=== PATIENT | female | born 1975 | race American Indian/Alaskan Native ===

== ENCOUNTER 2019-05-05 11:20 | Inpatient (IN) | payer MEDICARE ==
[2019-05-04 09:32] LABS: Basophils % (Auto) 0.2 % (0.0-1.8); Eosinophils # (Auto) 0.3 K/mm3 (0.0-0.4); Eosinophils % (Auto) 5.8 % (0.0-4.3); Hematocrit 40.1 % (30.3-42.9); Hemoglobin 13.9 gm/dl (10.1-14.3); Lymphocytes % (Auto) 38.5 % (13.4-35.0); Mean Corpuscular HGB Conc 35 % (30-34); Mean Corpuscular Volume 91 fl (79-97); Monocytes # (Auto) 0.3 K/mm3 (0.0-0.8); Monocytes % (Auto) 6.3 % (0.0-7.3); Platelet Count 244 K/mm3 (140-440); Red Blood Count 4.44 M/mm3 (3.65-5.03); Red Cell Distribution Width 13.5 % (13.2-15.2)
--- NOTE | 2019-05-04 13:04 | Anesthesia Consultation ---
Anesthesia Consult and Med Hx Date of service: 05/04/19 - Airway Anesthetic Teeth Evaluation: Good ROM Head & Neck: Adequate Mental/Hyoid Distance: Adequate Mallampati Class: Class II Intubation Access Assessment: Good - Pulmonary Exam CTA: Yes - Cardiac Exam Cardiac Exam: RRR - Pre-Operative Health Status ASA Pre-Surgery Classification: ASA2 Proposed Anesthetic Plan: General Nerve Block: TAP Block - Pulmonary Hx Smoking: Yes - Central Nervous System Hx Psychiatric Problems: Yes - Other Systems Hx Cancer: No
[~2019-05-05 11:20] MED LIST: LACTATED RINGERS 1,000 ML IV SCH; NEURONTIN PO NR; VERSED IV NR
[2019-05-05] MEDS ORDERED: DILAUDID IV PRN (12:03)
[2019-05-05] MEDS ORDERED: SUBLIMAZE IV ONE (12:03)
[2019-05-05] MEDS ORDERED: TYLENOL PO ONE (12:04)
--- NOTE | 2019-05-05 12:05 | Anesthesia Day of Surgery ---
Anesthesia Day of Surgery - Day of Surgery Patient Examined: Yes Patient H&P Reviewed: Yes Patient is NPO: Yes
--- NOTE | 2019-05-05 12:45 | History and Physical Report ---
History of Present Illness Date of examination: 05/05/19 Date of admission: 05/05/2019 Chief complaint: dysfunctional bleeding and fibroids History of present illness: 43y/o with dysfunctional uterine bleeding and fibroids. The patient reports worsening of her symptoms. She has failed medical management. She has elected for definitive surgical management. Past History Past Medical History: hypertension Past Surgical History: other (tubal ligation; Novasure) SCHEDULING ANALYST History: fibroids Social history: single, smoking - Obstetrical History : 2 Para: 2 Hx # Term Pregnancies: 2 Number of Pregnancies: 0 Spontaneous Abortions: 0 Induced : 0 Number of Living Children: 2 Medications and Allergies Allergies Allergy/AdvReac Type Severity Reaction Status Date / Time No Known Allergies Allergy Verified 04/29/19 12:53 Home Medications Medication Instructions Recorded Confirmed Last Taken Type Oxybutynin [Ditropan] 15 mg PO HS 05/04/19 05/04/19 Unknown History Quetiapine Fumarate [SEROquel XR] 150 mg PO HS 05/04/19 05/04/19 Unknown History tiZANidine [Zanaflex 4mg TAB] 8 mg PO HS 05/04/19 05/04/19 Unknown History traMADol [Ultram 50 MG tab] 50 mg PO Q8H PRN 05/04/19 05/04/19 Unknown History Active Meds: Active Medications Celecoxib (Celebrex) 200 mg PO PREOP NR Stop: 05/06/19 12:59 Fentanyl (Sublimaze) 50 mcg IV Q5MIN PRN PRN Reason: Pain , Severe (7-10) Stop: 05/06/19 12:02 Gabapentin (Neurontin) 300 mg PO PREOP NR Stop: 05/05/19 23:59 Hydromorphone HCl (Dilaudid) 0.5 mg IV Q10MIN PRN PRN Reason: Pain , Severe (7-10) Stop: 05/06/19 12:02 Lactated Ringer's (Lactated Ringers) 1,000 mls @ 100 mls/hr IV DIRECT AMRYJO Midazolam HCl (Versed) 2 mg IV PREOP NR Stop: 05/05/19 23:59 Review of Systems All systems: negative Genitourinary: vaginal bleeding, pelvic pain - Vital Signs Vital signs: Vital Signs Temp Pulse Resp BP Pulse Ox 99.5 F 20 L 20 119/73 97 05/04/19 09:15 05/04/19 09:15 05/04/19 09:15 05/04/19 09:15 05/04/19 09:15 Temp Pulse Resp BP Pulse Ox 99.5 F 20 L 20 119/73 97 05/04/19 09:15 05/04/19 09:15 05/04/19 09:15 05/04/19 09:15 05/04/19 09:15 - Physical Exam Breasts: Positive: deferred Cardiovascular: Regular rate Lungs: Positive: Clear to auscultation Abdomen: Positive: normal appearance Results Result Diagrams: 05/04/19 09:25 All other labs normal. Assessment and Plan - Patient Problems (1) Leiomyoma Current Visit: Yes Status: Acute Plan to address problem: will proceed with a robotic hysterectomy (2) Dysmenorrhea Current Visit: Yes Status: Acute
[2019-05-05] MEDS ORDERED: MARCAINE-EPI 0.5%-1:200,000 INFILTRATI ONE (12:54)
[2019-05-05] MEDS ORDERED: XYLOCAINE 1% 20 mL ONE (12:54)
[2019-05-05] MEDS ORDERED: ANCEF/STERILE WATER 2 GM/20 ML 2 GM/20 ML SYRINGE IV NR (13:00)
[2019-05-05] MEDS ORDERED: SUBLIMAZE ONE ×3 (13:25→16:35)
[2019-05-05] MEDS ORDERED: ZEMURON IV ONE (13:25)
[2019-05-05] MEDS ORDERED: XYLOCAINE MPF 2% ONE (13:25)
[2019-05-05] MEDS ORDERED: ZOFRAN ONE (13:25)
[2019-05-05] MEDS ORDERED: DECADRON ONE (13:25)
[2019-05-05] MEDS ORDERED: DIPRIVAN 10 MG/ML IV ONE (13:25)
[2019-05-05] MEDS ORDERED: NEOSPORIN GU IR ONE ×2 (13:29→14:46)
[2019-05-05] MEDS ORDERED: NACL 0.9% IR ONE ×2 (14:46)
[2019-05-05] MEDS ORDERED: PERCOCET 5/325 PO PRN (15:20)
[2019-05-05] MEDS ORDERED: MORPHINE IV PRN (15:20)
[2019-05-05] MEDS ORDERED: IBUPROFEN PO PRN (15:20)
[2019-05-05] MEDS ORDERED: ZOFRAN IV PRN (15:20)
[2019-05-05] MEDS ORDERED: AMBIEN PO PRN (15:20)
--- NOTE | 2019-05-05 15:20 | Operative Report ---
Operative Report Operative Report: Date of surgery: 05/05/2019 Preoperative diagnoses: Symptomatic uterine fibroids; dysmenorrhea; menorrhagia Postoperative diagnoses: Same as above Procedure: Robotic hysterectomy; Bilateral salpingectomy Surgeon: Zuleika Boateng M.D. Quotation Checker: Brionna Carl Anesthesia: Gen. endotracheal anesthesia Estimated blood loss: 50 mL Pathology: Cervix, uterus, bilateral tubes Indication: 43-year-old with symptomatic uterine fibroids and dysmenorrhea. The patient also reported abnormal vaginal bleeding. Procedure: The patient was taken to the operating room and given general endotracheal anesthesia without complication. She is prepped and draped in a normal sterile fashion. A bivalve speculum was placed in the patient's vagina and a single- tooth tenaculum placed on the anterior lip of the cervix. The uterus was sounded with the uterine sound. A [employer] uterine manipulator was placed in the bivalve speculum was then removed. Attention was then turned to the patient's abdomen where a millimeter supra umbilical skin incision was then made. A Veress needle was placed and peritoneal entry was verified water-filled syringe. Insufflation of the peritoneal cavity was performed with CO2 gas. The 12 mm trocar was then placed under direct visualization. An additional 8 mm trocar was placed on the patient's left and right lateral side just opposite of the supraumbilical trocar. An additional 5 mm right lateral trocar was then placed as the accessory port. In the supraumbilical 12 mm trocar site, the Clarence Garza device was used to place 0 vicryl suture that was secured with a hemostat. The patient was then placed in steep Trendelenburg. General survey e nlarged uterus with findings of normal tubes and ovaries bilaterally.. The da Cheko robot was then engaged. A fenestrated forcep was placed in arm 2 and a vessel sealer was placed in arm 1. The surgeon then transferred to the surgical console. The mesosalpinx was then isolated on the right. The vessel sealer was used to coagulate the mesosalpinx which was then transected. The tube was transected from the ovary. The tubo-ovarian ligament was then coagulated and transected. The round ligament was then coagulated and transected also. The vesicouterine peritoneum was then entered from the patient's right side. The uterine vessels were then coagulated with the vessel sealer. The vessels were then transected . Attention was then turned to the patient's left side where the tubo-ovarian ligament and mesosalpinx were again isolated coagulated and transected. The vesical peritoneum was then entered from the left and joined in the midline. Peritoneum was reflected off of the lower uterine segment. Uterine vessels were then coagulated and then transected. The blood supply to the uterus was adequately contained, a posterior colpotomy was made. The V care ring was visualized. Posterior colpotomy was created with the monopolar scissors. The incision was continued circumferentially until anterior colpotomy was made. The cervix and uterus were amputated from the vaginal cuff. The uterus was then removed along with the tubes bilaterally through the vagina and a warm laparotomy sponge was placed and maintain the pneumoperitoneum. The vaginal cuff was then closed in a running fashion with V lock suture. Irrigation of the pelvis was performed. Hemoblast was applied to the incision. The skin was then reapproximated with 4-0 Monocryl. The tissue was sent to pathology which included the cervix, uterus and tubes. The patient was then successfully extubated. She was then taken to the recovery room in stable condition. All sponge laps and needle counts were correct x2.
[2019-05-05] MEDS ORDERED: BREVIBLOC IV ONE (15:21)
[2019-05-05] MEDS ORDERED: BLOXIVERZ ONE (15:21)
[2019-05-05] MEDS ORDERED: ROBINUL ONE (15:21)
[2019-05-05] MEDS ORDERED: D5LR 1,000 ML IV SCH (16:00)
[2019-05-05] MEDS: SUBLIMAZE IV PRN ×4 (16:02→17:04)
[2019-05-05] MEDS ORDERED: LACTATED RINGERS 1,000 ML ONE (17:20)
--- NOTE | 2019-05-05 19:48 | Post Anesthesia Evaluation ---
- Post Anesthesia Evaluation Patient Participated: Yes Airway Patent: Yes Stable Respiratory Function: Yes Nausea/Vomiting: No Temp > 96.8F: Yes Pain Manageable: Yes Adequeate Hydration: Yes Anesthesia Complications: No Block Receding Appropriately: Not Applicable (For post-op pain) Patient on Ventilator: No
[2019-05-05] MEDS: TORADOL IV SCH (23:38)
[2019-05-06] MEDS: TORADOL IV SCH (06:24)
[2019-05-06 06:44] LABS: Hematocrit 36.5 % (30.3-42.9); Hemoglobin 12.5 gm/dl (10.1-14.3)
[2019-05-06 09:20] VITALS: BP 109/69
--- NOTE | 2019-05-06 10:23 | Progress Note ---
Assessment and Plan - Patient Problems (1) Leiomyoma Current Visit: Yes Status: Acute Plan to address problem: patient doing well discharge home (2) Dysmenorrhea Current Visit: Yes Status: Acute Subjective - Subjective Date of service: 05/06/19 Interval history: Patient without complaints. Tolerating regular diet. Pain well controlled Patient reports: appetite normal, pain well controlled Objective - Vital Signs Latest vital signs: Vital Signs Temp Pulse Pulse Resp BP Pulse Ox 05/06/19 07:45 97.4 F L 62 16 109/69 99 05/06/19 06:54 18 05/06/19 06:24 18 05/06/19 04:37 98.3 F 62 20 94/53 96 05/06/19 00:08 18 05/05/19 23:38 18 05/05/19 23:34 98.3 F 65 20 114/62 100 05/05/19 22:00 80 18 05/05/19 20:26 18 05/05/19 19:56 18 05/05/19 19:49 98.2 F 92 H 20 128/78 99 05/05/19 18:04 12 05/05/19 17:47 88 123/69 95 05/05/19 17:34 12 05/05/19 17:30 97.5 F L 79 14 125/69 97 05/05/19 17:06 14 05/05/19 17:04 14 05/05/19 17:02 14 05/05/19 17:00 70 13 118/77 98 05/05/19 16:45 71 17 118/73 96 05/05/19 16:34 19 05/05/19 16:15 83 12 128/73 96 05/05/19 16:06 14 05/05/19 16:02 18 05/05/19 16:00 85 21 110/50 100 05/05/19 15:45 85 11 L 127/70 100 05/05/19 15:41 96.8 F L 92 H 16 121/66 100 05/05/19 14:50 121/66 05/05/19 13:26 75 19 111/49 99 05/05/19 13:21 73 24 107/50 97 05/05/19 13:17 66 20 106/50 97 05/05/19 13:12 73 12 116/59 100 05/05/19 13:06 67 13 120/50 98 05/05/19 12:40 18 05/05/19 12:19 98.0 F 18 L 18 118/74 98 05/05/19 11:50 98.0 F 75 12 118/74 98 Intake and Output 05/05/19 05/06/19 05/06/19 22:59 06:59 14:59 Intake Total 850 120 Output Total 270 Balance 580 120 Intake: IV 610 Left Hand 10 Oral 240 120 Output: Urine 270 Uretheral (Jimenez) 60 Other: Total, Intake Amount 240 120 Total, Output Amount 600 Voiding Method Indwelling Catheter # Voids Void 300 600 Weight 72.5 kg
--- NOTE | 2019-05-06 10:25 | Discharge Summary ---
Providers - Providers Date of Admission: 05/05/19 12:56 Date of discharge: 05/06/19 Attending physician: WAN GRIFFITH Primary care physician: ALIX HAN Hospitalization Reason for admission: other (dysmenorrhea) Procedure: other (robotic hysterectomy) Discharge diagnosis: other (dysmenorrhea) Hospital course: Patient admitted the day of surgery and underwent a robotic hysterectomy. see op note. post op uneventful Condition at discharge: Good Disposition: [id number] TO HOME OR SELFCARE - Discharge Diagnoses (1) Leiomyoma Status: Acute (2) Dysmenorrhea Status: Acute Plan - Discharge Medications Prescriptions: Ibuprofen [Motrin] 800 mg PO Q8HR PRN #60 tablet PRN Reason: Pain, Mild (1-3) oxyCODONE /ACETAMINOPHEN [Percocet 5/325] 1 tab PO Q6HR PRN #30 tablet PRN Reason: Pain - Provider Discharge Summary Activity: no sex for 6 weeks, no heavy lifting 4 weeks, no strenuous exercise Diet: routine Instructions: routine Additional instructions: [] Smoking cessation referral if applicable(refer to patient education folder for contact #) [] Refer to [facility]'s [facility] Booklet Call your doctor immediately for: * Fever > 100.5 * Heavy vaginal bleeding ( >1 pad per hour) * Severe persistent headache * Shortness of breath * Reddened, hot, painful area to leg or breast * Drainage or odor from incision. * Keep incision clean and dry at all times and follow doctor's instructions regarding bathing/showering schedule followup in 4 week - Follow up plan
== END 2019-05-06 13:00 | disposition home or self-care (01) | DRG 743 ==
LOC: OR 11:20 → OB 12:56
PROVIDERS: ADMIT Obstetrics & Gynecology; ATTEND Obstetrics & Gynecology
PROC: 0UT9FZZ Resection of Uterus, Via Natural or Artificial Opening With Percutaneous Endoscopic Assistance (ICD-10-PCS; principal; 2019-05-05)
PROC: 0UT7FZZ Resection of Bilateral Fallopian Tubes, Via Natural or Artificial Opening With Percutaneous Endoscopic Assistance (ICD-10-PCS; 2019-05-05)
PROC: 8E0W4CZ Robotic Assisted Procedure of Trunk Region, Percutaneous Endoscopic Approach (ICD-10-PCS; 2019-05-05)
DX: D25.9 Leiomyoma of uterus, unspecified (principal); N92.0 Excessive and frequent menstruation with regular cycle; N94.6 Dysmenorrhea, unspecified; F17.200 Nicotine dependence, unspecified, uncomplicated; Z98.51 Tubal ligation status; Z79.899 Other long term (current) drug therapy
CPT/HCPCS: 36415; 64450; 84703; 85014; 85018; 85025; 86850; 86900; 86901; 88307; G0378; A4217; J0690; J1100; J1885; J2250; J2270; J2405; J2704; J2710; J3010; J7120; J7121